=== PATIENT | male | born 1960 | race Caucasian/White ===

== ENCOUNTER 2017-03-16 06:31 | Day surgery (SDC) | payer BC, OTHER ==
[~2017-03-16 06:31] MED LIST: Lactated Ringers 1,000 ML IV SCH; ceFAZolin 2 GM in Premix Bag 1 BAG IV SCH
[2017-03-16] MEDS ORDERED: Lidocaine 1% 20 ML MDV ONE (07:18)
[2017-03-16] MEDS ORDERED: Bupivacaine 0.25% 10 ML SDV ONE (07:18)
[2017-03-16] MEDS ORDERED: Propofol 200 MG/20 ML SDV ONE ×2 (07:30→08:14)
[2017-03-16] MEDS ORDERED: Lidocaine 2% 5 ML SDV ONE (07:30)
--- NOTE | 2017-03-16 07:30 | PCM.PREANE ---
Preanesthetic Assessment - Procedure Proposed Procedure: Right carpal tunnel release - Anesthesia/Transfusion/Family Hx Anesthesia History: Prior Anesthesia Without Reaction Family History of Anesthesia Reaction: No Transfusion History: No Prior Transfusion(s) Intubation History: Unknown - Review of Systems General: No Symptoms Pulmonary: No Symptoms Cardiovascular: Other (HTN at current elevated level but occurs as "white coat" episodes) Neurological: Pre-Existing Deficit (right hand median N. impairment; also s/p inury to dorsum hand at MP joint middle finger) Other: Reports: None - Physical Assessment NPO Status Date: 03/15/17 NPO Status Time: 21:00 O2 Sat by Pulse Oximetry: 97 Respiratory Rate: 16 Vital Signs: Last Vital Signs Temp 97.3 F 03/16/17 06:45 Pulse 58 L 03/16/17 06:45 Resp 16 03/16/17 06:45 BP 125/92 H 03/16/17 06:45 Pulse Ox 97 03/16/17 06:45 Height: 6 ft 2 in Weight: 200 lb ASA Class: 2 Mental Status: Alert & Oriented x3 Airway Class: Mallampati = 1 Dentition: Reports: Normal Dentition Thyro-Mental Finger Breadths: 3 Mouth Opening Finger Breadths: 3 ROM/Head Extension: Full Lungs: Clear to Auscultation, Normal Respiratory Effort Cardiovascular: Regular Rate, Regular Rhythm, No Murmurs - Allergies Allergies/Adverse Reactions: Allergies Allergy/AdvReac Type Severity Reaction Status Date / Time No Known Allergies Allergy Verified 03/16/17 07:29 - Blood Blood Available: No Product(s) Available: None - Acknowledgements Anesthesia Type Planned: General Anesthesia (vs MAC - discuss with surgeon), MAC Pt an Appropriate Candidate for the Planned Anesthesia: Yes Alternatives and Risks of Anesthesia Discussed w Pt/Guardian: Yes Pt/Guardian Understands and Agrees with Anesthesia Plan: Yes PreAnesthesia Questionnaire Other HEENT History: wears glasses Gastrointestinal History: Reports: Diverticulosis Musculoskeletal History: Reports: Fracture Other Musculoskeletal History: hx of fx ribs - Past Surgical History HEENT Surgical History: Reports: Tonsillectomy GI Surgical History: Reports: Colonoscopy Musculoskeletal Surgical History: Reports: Other (See Below) Other Musculoskeletal Surgeries/Procedures:: right Achilles Tendon Repair, tendon repair of finger right hand - SUBSTANCE USE Smoking Status *Q: Never Smoker Recreational Drug Use History: No - HOME MEDS Home Medications: Home Meds Cardioplus 2 tab PO BEDTIME 03/12/17 [History] L. Rhamnosus GG/Inulin [Culturelle Capsule] 1 cap PO DAILY 03/12/17 [History] Psyllium Husk/Aspartame [Metamucil Fiber Singles Packet] 1 package PO ASDIRECTED PRN 03/12/17 [History] - CURRENT (IN HOUSE) MEDS Current Meds: Current Medications Hydrocodone Bitart/Acetaminophen ([place] 325-5 Mg) 1 - 2 tab PO Q4H PRN PRN Reason: Pain Cefazolin Sodium/Dextrose 2 gm (/ Premix) 50 mls @ 100 mls/hr IV ONCALL AMINATA Lactated Ringer's (Ringers, Lactated) 1,000 mls @ 100 mls/hr IV ASDIRECTED AMINATA Last Admin: 03/16/17 06:49 Dose: 100 mls/hr Discontinued Medications Bupivacaine HCl (Sensorcaine-Mpf 0.25%) Confirm Administered Dose 10 ml .ROUTE .STK-MED ONE Stop: 03/16/17 07:19 Lidocaine HCl (Xylocaine 1%) Confirm Administered Dose 20 ml .ROUTE .STK-MED ONE Stop: 03/16/17 07:19
[2017-03-16] MEDS ORDERED: Midazolam 1 MG/ML 2 ML SDV ONE (07:31)
[2017-03-16] MEDS ORDERED: fentaNYL 100 MCG/2 ML SDV ONE (07:31)
[2017-03-16] MEDS ORDERED: Acetaminophen/HYDROcodone 325-5 MG Tab PO PRN (08:00)
[2017-03-16] MEDS ORDERED: Ondansetron 4 MG/2 ML SDV ONE (08:18)
[2017-03-16] MEDS ORDERED: Ketorolac 30 MG/ML SDV ONE (08:18)
--- NOTE | 2017-03-16 08:36 | PCM.OPNOTE ---
- General Post-Op/Procedure Note Date of Surgery/Procedure: 03/16/17 Operative Procedure(s): R CTR Post-Op Diagnosis: CTS R Anesthesia Technique: Local, Moderate Sedation Primary Surgeon: Shivani Lee Asphalt Distributor Operator: Mily Plunkett in mLs: 5 Condition: Good Free Text/Narrative:: tt= 3min #[id number]
--- NOTE | 2017-03-16 08:56 | PCM.POSTAN ---
POST ANESTHESIA ASSESSMENT - MENTAL STATUS Mental Status: Alert, Oriented - RESPIRATORY Respiratory Status: Respiratory Rate WNL, Airway Patent, O2 Saturation Stable - CARDIOVASCULAR CV Status: Pulse Rate WNL, Blood Pressure Stable - GASTROINTESTINAL GI Status: No Symptoms - POST OP HYDRATION Hydration Status: Adequate & Stable
--- NOTE | 2017-03-16 09:29 | PCM48HPAN ---
Post Anesthesia Note - EVALUATION WITHIN 48HRS OF ANESTHETIC Vital Signs in Normal Range: Yes Patient Participated in Evaluation: Yes Respiratory Function Stable: Yes Airway Patent: Yes Cardiovascular Function Stable: Yes Hydration Status Stable: Yes Pain Control Satisfactory: Yes Nausea and Vomiting Control Satisfactory: Yes Mental Status Recovered: Yes
--- NOTE | 2017-03-16 11:05 | OR ---
SURGEON: Shivani Lee MD DATE OF PROCEDURE: 03/16/2017 PREOPERATIVE DIAGNOSIS: Right carpal tunnel syndrome. POSTOPERATIVE DIAGNOSIS: Right carpal tunnel syndrome. PROCEDURE: Right carpal tunnel release, open. ELECTRONICS UTILITY WORKER: Mily Plunkett PA-C. ANESTHESIA: Local with sedation. ESTIMATED BLOOD LOSS: 5 mL. TOURNIQUET TIME: 3 minutes. COMPLICATIONS: None. DVT PROPHYLAXIS: Not indicated. IMPLANTS USED: None. BRIEF HISTORY: Gne is a 57-year-old male, who has had complaint of progressive right hand numbness. EMG/nerve conduction studies confirm carpal tunnel syndrome. Due to his lack of response to conservative treatment, I did recommend surgical intervention. Risks and goals of procedure were discussed with the patient and were documented preoperatively. He agreed to proceed. DESCRIPTION OF PROCEDURE: The patient was properly identified and brought to the operating room. The patient was transferred from the operating room cart and placed on the operating room table in the supine position. Sedation was administered. After adequate sedation was achieved, a well-padded tourniquet was applied to the right forearm. The upper extremity was then prepped in standard fashion using ChloraPrep solution. It was then sterilely draped. A time-out was performed to ensure correct site and procedure. Preoperative antibiotics were given. The surgical site had been marked preoperatively. A mixture of 1% Lidocaine and 0.25% Marcaine were injected along the area of anticipated incision. An Esmarch was used to exsanguinate the right upper extremity and the tourniquet was inflated to 200 millimeters of mercury. A fifteen blade scalpel used to make an incision over the volar aspect of the hand. The subcutaneous tissues and palmar fascia were incised down to the level of the transverse carpal ligament. Transverse carpal ligament was then incised. Care was taken to release the ligament distally to the level of fat and proximally into the forearm. At the completion, we had good decompression of the median nerve. No other abnormalities were identified. The wound was then copiously irrigated with saline solution. The tourniquet was deflated. Electrocautery was used to maintain hemostasis. The incision site was closed with 4-0 nylon. Xeroform gauze was placed over the wound and a bulky dressing was applied. The patient was awakened from the sedation and transferred back to the operating room cart. The patient was brought to the recovery room in stable condition. All needle and sponge counts were correct. SANDRITA / ISAAC /[id number]
== END 2017-03-16 09:40 | disposition home or self-care (01) ==
LOC: MW.SDS 06:31
PROVIDERS: ATTEND Orthopaedic Surgery
DX: G56.01 Carpal tunnel syndrome, right upper limb (principal); Z91.048 Other nonmedicinal substance allergy status; Z90.89 Acquired absence of other organs
CPT/HCPCS: 64721; J1885; J2250; J2405; J3010; J7120; 01810; J2704